=== PATIENT | male | born 1990 | race African-American/Black ===

== ENCOUNTER 2019-02-26 12:52 | Emergency (ER) | payer OTHER ==
[~2019-02-26] VITALS: Ht 182.9 cm; Wt 88.5 kg
[~2019-02-26 12:52] MED LIST: LIDODERM 5%1 PATC1 TOP; NAPROSYN500 MG PO; NORCO 10-325 T1 EACH PO; NORFLEX100 MG PO; XANAX 0.5 MG0.5 MG PO
[2019-02-26 13:26] LABS: ABSOLUTE NEUTROPHILS 3.5 thou/uL (1.4-8.2); BASOPHILS 0.6 % (0.0-2.0); EOSINOPHILS 2.4 % (0.0-3.0); HEMATOCRIT 42.7 % (42.0-52.0); HEMOGLOBIN 14.3 gm/dL (14.0-18.0); MCH 30.6 pg (26.0-34.0); MCHC 33.6 g/dL (28.0-37.0); MCV 91.3 fL (80.0-100.0); MONOCYTES 11.4 % (1.0-8.0); PLATELET COUNT 150 thou/uL (150-400); POLYS 53.6 % (36.0-66.0); RBC 4.68 mil/uL (4.50-6.00); WBC 6.6 thou/uL (4.0-11.0)
[2019-02-26 13:31] LABS: URINE BILIRUBIN NEGATIVE (Negative); URINE BLOOD NEGATIVE (Negative); URINE CLARITY CLEAR; URINE COLOR YELLOW; URINE GLUCOSE-RANDOM* NEGATIVE (Negative); URINE KETONES NEGATIVE (Negative); URINE LEUKOCYTES-REFLEX NEGATIVE (Negative); URINE NITRITE-REFLEX NEGATIVE (Negative); URINE PROTEIN (DIPSTICK) NEGATIVE (Negative); URINE SPECIFIC GRAVITY 1.015 (1.005-1.035); URINE UROBILINOGEN 0.2 E.U./dl (0.2-1.0)
[2019-02-26 13:33] LABS: CALCIUM 9.3 mg/dL (8.5-10.1); CREATININE 1.1 mg/dL (0.7-1.3); POTASSIUM 3.9 mmol/L (3.5-5.1)
[2019-02-26] MEDS ORDERED: IBUPROFEN 800800 MG PO (16:08)
[2019-02-26 16:20] VITALS: BP 121/61
[2019-02-28 03:05] LABS: SYPHILIS AB Positive (Negative)
== END 2019-02-26 16:21 | disposition home or self-care (01) ==
LOC: ER 12:52
PROVIDERS: Emergency Medicine
DX: M79.18 Myalgia, other site (principal); M54.9 Dorsalgia, unspecified; G89.29 Other chronic pain; F41.9 Anxiety disorder, unspecified